=== PATIENT | male | born 1990 | race Two or more races ===

== ENCOUNTER 2022-12-12 07:29 | Emergency (ER) | payer BC, OTHER ==
[~2022-12-12] VITALS: Ht 182.9 cm; Wt 77.2 kg
[2022-12-12 08:03] VITALS: BP 136/74
[2022-12-12] MEDS ORDERED: IBUP1TAB5 PO (09:17)
== END 2022-12-12 09:24 | disposition home or self-care (01) ==
LOC: ER 07:29
DX: S46.911A Strain of unspecified muscle, fascia and tendon at shoulder and upper arm level, right arm, initial encounter (principal); X50.0XXA Overexertion from strenuous movement or load, initial encounter; Y93.89 Activity, other specified; Y92.89 Other specified places as the place of occurrence of the external cause; Y99.8 Other external cause status
CPT/HCPCS: 73030